=== PATIENT | male | born 1970 | race Caucasian/White ===

== ENCOUNTER 2021-10-04 07:40 | Emergency (ER) | payer OTHER ==
[~2021-10-04] VITALS: Ht 180.3 cm; Wt 68.9 kg
--- NOTE | 2021-10-04 08:10 | NUR ---
Dr. Gonzalez at bedside to examine pt. at bedside.
--- NOTE | 2021-10-04 08:10 | NUR ---
DR LAINEZ AT BEDSIDE FOR EVALUATION.
[2021-10-04] MEDS ORDERED: diphenhydrAMINE 50 MG/1 ML VIAL IV ONE (08:15)
[2021-10-04] MEDS ORDERED: PROCHLORPERAZINE EDISYLATE 10 MG/2 ML VIAL IV ONE (08:15)
[2021-10-04] MEDS ORDERED: DEXAMETHASONE SOD PHOSPHATE 4 MG INJ IV ONE (08:15)
[2021-10-04] MEDS ORDERED: IV NORMAL SALINE 1000 ML BAG IV ONE (08:15)
[2021-10-04] MEDS ORDERED: ACETAMINOPHEN ES 500 MG TABLET PO ONE (08:15)
[2021-10-04] MEDS ORDERED: IOHEXOL 350 100 ML INFUS..BTL ONE (08:23)
[2021-10-04] MEDS ORDERED: IV NORMAL SALINE 250 ML IV ONE (08:24)
[2021-10-04] MEDS ORDERED: SWABABLE VALVE TRANSFER SET EA MC ONE (08:24)
[2021-10-04] MEDS ORDERED: diphenhydrAMINE 25 MG/10 ML UDC ONE (08:27)
[2021-10-04] MEDS ORDERED: ACETAMINOPHEN ES 500 MG TABLET ONE (08:28)
[2021-10-04] MEDS ORDERED: DEXAMETHASONE SOD PHOSPHATE 10 MG INJ ONE (08:28)
[2021-10-04] MEDS ORDERED: diphenhydrAMINE 50 MG/1 ML VIAL ONE (08:30)
[2021-10-04] MEDS ORDERED: PROCHLORPERAZINE EDISYLATE 10 MG/2 ML VIAL ONE (08:32)
[2021-10-04 08:48] LABS: HEMATOCRIT 38.5 % (36.7-47.1); MEAN CORPUSCULAR HEMOGLOBIN 32.5 uug (23.8-33.4); PLATELET COUNT (AUTO) 207 K/uL (152-348)
[2021-10-04 08:57] LABS: CREATININE 0.9 mg/dL (0.6-1.3); POTASSIUM 3.8 mmol/L (3.5-5.1)
--- NOTE | 2021-10-04 10:45 | NUR ---
Telephone report given to RN's Zion Patient will be going to room 4517 ETOA of 30 minutes as reported earlier.
--- NOTE | 2021-10-04 10:51 | NUR ---
Telephone report given to Waldemar Melgoza and Fermin. All systems report covered. Patient consented for transfer with at bedside. Pt's involved in care plan as well.
--- NOTE | 2021-10-04 10:59 | NUR ---
HR 88, sbp of 132/90. rr 18. 0/10 pain Pt. AAOx4. Vitals stable.
--- NOTE | 2021-10-04 11:30 | NUR ---
ICU transportation in the unit report given Ba Spencer. patient left via gurney with last set of vitals sbp of 119/73. HR of 92. LAC G20 patent. pt. AAOX4. at bedside, and copies of lab work imaging reading results given to her as ordered and as requested by pt.
--- NOTE | 2021-10-04 11:45 | NUR ---
Patient left via ICU crisis trasportation taken to [facility] receiving physician Dr. Rao Roa.
== END 2021-10-04 11:52 | disposition short-term general hospital (02) ==
LOC: ER 07:40
DX: I60.2 Nontraumatic subarachnoid hemorrhage from anterior communicating artery (principal); M50.322 Other cervical disc degeneration at C5-C6 level; M48.02 Spinal stenosis, cervical region
CPT/HCPCS: 36415; 70450; 70496; 70498; 71045; 72125; 80048; 85025; 85730; 87426; 93005; 96361; 96374; 96375; 99291; J0780; J1100; J1200; Q9967; A4663; A9150; J7040; Q0163